=== PATIENT | female | born 1965 | race Caucasian/White ===

== ENCOUNTER 2016-12-14 17:05 | Emergency (ER) | payer BC ==
[~2016-12-14] VITALS: Ht 160 cm; Wt 60.0 kg
[2016-12-14 17:09] VITALS: BP 174/89; PULSE 78; RESP 18; TEMP 98.2; O2SAT 98
--- NOTE | 2016-12-14 18:32 | PD ---
HPI Chief Complaint: Numbness/Tingling Time Seen by Provider: 18:32 Travel History International Travel<30 days: No Contact w/Intl Traveler<30days: No Traveled to known affect area: No History of Present Illness HPI 51-year-old female presents the emergency department after seeing her physician today with history of intermittent bilateral lower extremity paresthesias/numbness, and episode of left arm numbness yesterday. Patient states she's had these symptoms off and on for the past 6 months. Patient states several months ago they were present but seem to resolve on their own with increased exercise. Patient states at that time she did not seek medical attention. Patient states she had her regular yearly physical today and has noted these symptoms worsen in the last week. Patient denies weakness, headache , dizziness, nausea, vomiting, or other focal neurological deficit. Patient states the symptoms do not seem to relate to any specific activity, or time of day. Patient denies increased recent anxiety or stressors. Denies any increased surgery. Patient states now that she's here in the emergency department she has no symptoms currently. Patient has no history of diabetes, or thyroid disease, And takes no medications. She has no known drug allergies. [facility] Past Medical History ?: Not LMP: december 2015 Past Surgical History Surgical History: No Previous Surgery Family History Family Myocardial Infarction: Yes (brother had mi ) Social History Alcohol Use: Yes (occ wine ) Tobacco Use: Yes (1/2 pack a day ) Substance Use: No Allergies-Medications (Allergen,Severity, Reaction): Coded Allergies: No Known Allergies (Unverified , 12/14/16) Review of Systems Except as stated in HPI: all other systems reviewed are Neg General / Constitutional: No: Fever Eyes: No: Visual changes HENT: No: Headaches Cardiovascular: No: Chest Pain or Discomfort Respiratory: No: Shortness of Breath Gastrointestinal: No: Abdominal Pain Genitourinary: No: Dysuria Musculoskeletal: No: Pain Skin: No Rash Neurologic: No: Weakness Psychiatric: No: Depression Endocrine: No: Polydipsia Hematologic/Lymphatic: No: Easy Bruising Physical Exam Narrative GENERAL: Patient appears in no acute distress. SKIN: Warm and dry. Normal color. Normal turgor. No rash. HEAD: Atraumatic. Normocephalic. EYES: Pupils equal and round. No scleral icterus. No injection or drainage. Ocular motions are equal bilaterally with no nystagmus. ENT: No nasal bleeding or discharge. Mucous membranes pink and moist. Pharynx is normal. Airway is patent. Tongue is midline. TMs are clear bilaterally. NECK: Trachea midline. No JVD. Supple nontender. CARDIOVASCULAR: Regular rate and rhythm. No murmurs gallops or rubs. RESPIRATORY: No accessory muscle use. Clear to auscultation. Breath sounds equal bilaterally. GASTROINTESTINAL: Abdomen soft, non-tender, nondistended. Hepatic and splenic margins not palpable. MUSCULOSKELETAL: Extremities without clubbing, cyanosis, or edema. No obvious deformities. Patient has full range of motion strength and sensation in all extremities at this time. She has normal pincher strength bilaterally. Patient has normal finger to nose, and [id number] testing. Romberg is down bilaterally. NEUROLOGICAL: Awake and alert. No obvious cranial nerve deficits. Motor grossly within normal limits. Five out of 5 muscle strength in the arms and legs. Normal speech. PSYCHIATRIC: Appropriate mood and affect; insight and judgment normal. Data Data Last Documented VS Vital Signs Date Time Temp Pulse Resp B/P Pulse Ox O2 Delivery O2 Flow Rate FiO2 12/14/16 20:05 18 98 Room Air 12/14/16 20:03 64 120/87 12/14/16 17:[address] Brain W/O Iv Contrast(Rout) (12/14/16 ) Electrocardiogram (12/14/16 ) Complete Blood Count With Diff (12/14/16 18:42) Comprehensive Metabolic Panel (12/14/16 18:42) Magnesium (Mg) (12/14/16 18:42) Act Partial Throm Time (Ptt) (12/14/16 18:42) Prothrombin Time / Inr (Pt) (12/14/16 18:42) Urinalysis - C+S If Indicated (12/14/16 18:42) Chest, Single Ap (12/14/16 18:42) Ecg Monitoring (12/14/16 18:42) Iv Access Insert/Monitor (12/14/16 18:42) Oximetry (12/14/16 18:42) Sodium Chloride 0.9% Flush (Ns Flush) (12/14/16 18:45) Thyroid Stimulating Hormone (12/14/16 18:42) Labs Laboratory Tests Test 12/14/16 12/14/16 18:50 19:30 White Blood Count 8.5 TH/MM3 Red Blood Count 4.86 MIL/MM3 Hemoglobin 14.9 GM/DL Hematocrit 43.1 % Mean Corpuscular Volume 88.8 FL Mean Corpuscular Hemoglobin 30.6 PG Mean Corpuscular Hemoglobin 34.4 % Concent Red Cell Distribution Width 13.8 % Platelet Count 305 TH/MM3 Mean Platelet Volume 6.7 FL Neutrophils (%) (Auto) 52.1 % Lymphocytes (%) (Auto) 38.3 % Monocytes (%) (Auto) 7.2 % Eosinophils (%) (Auto) 1.6 % Basophils (%) (Auto) 0.8 % Neutrophils # (Auto) 4.5 TH/MM3 Lymphocytes # (Auto) 3.3 TH/MM3 Monocytes # (Auto) 0.6 TH/MM3 Eosinophils # (Auto) 0.1 TH/MM3 Basophils # (Auto) 0.1 TH/MM3 CBC Comment DIFF FINAL Differential Comment Prothrombin Time 10.6 SEC Prothromb Time International 1.0 RATIO Ratio Activated Partial 27.9 SEC Thromboplast Time Sodium Level 141 MEQ/L Potassium Level 4.0 MEQ/L Chloride Level 105 MEQ/L Carbon Dioxide Level 24.9 MEQ/L Anion Gap 11 MEQ/L Blood Urea Nitrogen 11 MG/DL Creatinine 0.98 MG/DL Estimat Glomerular Filtration 60 ML/MIN Rate Random Glucose 90 MG/DL Calcium Level 9.6 MG/DL Magnesium Level 2.2 MG/DL Total Bilirubin 0.3 MG/DL Aspartate Amino Transf 28 U/L (AST/SGOT) Alanine Aminotransferase 31 U/L (ALT/SGPT) Alkaline Phosphatase 86 U/L Total Protein 7.5 GM/DL Albumin 4.3 GM/DL Thyroid Stimulating Hormone 1.830 uIU/ML 3rd Gen Urine Color LIGHT-YELLOW Urine Turbidity HAZY Urine pH 5.5 Urine Specific [place] 1.008 Urine Protein NEG mg/dL Urine Glucose (UA) NEG mg/dL Urine Ketones 10 mg/dL Urine Occult Blood MOD Urine Nitrite NEG Urine Bilirubin NEG Urine Urobilinogen LESS THAN 2.0 MG/DL Urine Leukocyte Esterase SMALL Urine RBC 6 /hpf Urine WBC 1 /hpf Urine Squamous Epithelial 6 /hpf Cells Microscopic Urinalysis Comment CULT NOT INDICATED MDM Medical Decision Making Medical Screen Exam Complete: Yes Emergency Medical Condition: Yes Differential Diagnosis Paresthesias. Electrolyte imbalance. Thyroid disease. Diabetes. Intracranial process. Possible MS. Narrative Course Patient's medically stable at time of exam. Labs ordered including CBC, CMP, magnesium, TSH, urinalysis. Chest x-ray is ordered as well as CT scan of the head. EKG is ordered as well. EKG shows normal sinus rhythm without acute changes. This is reviewed with Dr. Son. CBC is unremarkable. Blood pressures rechecked at 1920 hrs. and found to be 132/80 to manually taken by myself. Chest x-ray is unremarkable for acute findings per radiologist. CT scan is unremarkable for acute findings per radiologist. Coagulation studies are normal. Electrolytes are normal. Creatinine 0.98. CMP is unremarkable. TSH is normal at 1.08. Urinalysis is normal as well. Patient was discussed with Dr. Son who felt the patient was stable for discharge home. Patient is recommended follow with her primary care physician or neurologist as discussed. Patient can return the right department anytime for worsening symptoms as needed. Diagnosis Primary Impression: Paresthesia of both feet Additional Impression: Intermittent paresthesia of right hand and foot Referrals: Rivera Baugh MD call for appointment Primary Care Physician call for appointment Patient Instructions: General Instructions, Paresthesia (ED) Additional Instructions: The workup today here at the emergency department was negative for any acute findings. Recommend close follow with her primary care physician and possible neurology consult for ongoing paresthesia. Med/Other Pt SpecificInfo: No Meds Exist/No RX given Disposition: DISCHARGE HOME Condition: Stable Chas Cannon Dec 14, 2016 18:32
[2016-12-14] MEDS ORDERED: SODIUM CHLORIDE 0.9% FLUSH 10 ML FLUSH IVF PRN (18:45)
--- NOTE | 2016-12-14 18:58 | RADRPT ---
EXAM DATE/TIME: 12/14/2016 18:47 [facility] COMPARISON: No previous studies available for comparison. INDICATIONS : Bilateral tingling in feet and right arm numbness. RADIATION DOSE: 29.96 CTDIvol (mGy) MEDICAL HISTORY : None SURGICAL HISTORY : Umbilical hernia repair. None. ENCOUNTER: Initial ACUITY: 1 day PAIN SCALE: 0/10 LOCATION: cranial TECHNIQUE: Multiple contiguous axial images were obtained of the head. Using automated exposure control and adj ustment of the mA and/or kV according to patient size, radiation dose was kept as low as reasonably a chievable to obtain optimal diagnostic quality images. FINDINGS: CEREBRUM: The ventricles are normal for age. No evidence of midline shift, mass lesion, hemorrhage or acute in farction. No extra-axial fluid collections are seen. POSTERIOR FOSSA: The cerebellum and brainstem are intact. The 4th ventricle is midline. The cerebellopontine angle i s unremarkable. EXTRACRANIAL: The visualized portion of the orbits is intact. SKULL: The calvaria is intact. No evidence of skull fracture. CONCLUSION: No acute intracranial disease. Anthony Oliva MD on December 14, 2016 at 18:56 Board Certified Radiologist. This report was verified electronically.
--- NOTE | 2016-12-14 19:08 | RADRPT ---
EXAM DATE/TIME: 12/14/2016 18:55 [facility] COMPARISON: No previous studies available for comparison. INDICATIONS : Tingling in extremities and dizziness. MEDICAL HISTORY : None. SURGICAL HISTORY : None. ENCOUNTER: Initial ACUITY: 2 days PAIN SCORE: 0/10 LOCATION: Bilateral chest FINDINGS: A single view of the chest demonstrates the lungs to be symmetrically aerated without evidence of mas s, infiltrate or effusion. The cardiomediastinal contours are unremarkable. Osseous structures are intact. CONCLUSION: No acute disease. Anthony Oliva MD on December 14, 2016 at 19:06 Board Certified Radiologist. This report was verified electronically.
[2016-12-14 19:13] LABS: AUTOMATED NEUTROPHIL # 4.5 TH/MM3 (1.8-7.7); BASOPHIL # 0.1 TH/MM3 (0-0.2); BASOPHIL % 0.8 % (0.0-2.0); EOSINOPHIL # 0.1 TH/MM3 (0-0.4); EOSINOPHIL % 1.6 % (0.0-4.0); HEMATOCRIT 43.1 % (35.0-46.0); HEMO FLAGS DIFF FINAL; LYMPH % 38.3 % (9.0-44.0); LYMPHOCYTE # 3.3 TH/MM3 (1.0-4.8); MEAN CELL VOLUME 88.8 FL (80.0-100.0); MEAN CORPUSCULAR HEMOGLOBIN 30.6 PG (27.0-34.0); MEAN CORPUSCULAR HGB CONC 34.4 % (32.0-36.0); MONO % 7.2 % (0.0-8.0); NEUT % 52.1 % (16.0-70.0); PLATELET COUNT 305 TH/MM3 (150-450); RED BLOOD COUNT 4.86 MIL/MM3 (4.00-5.30); RED CELL DISTRIBUTION WIDTH 13.8 % (11.6-17.2); WHITE BLOOD COUNT 8.5 TH/MM3 (4.0-11.0)
[2016-12-14 19:21] LABS: APTT (PATIENT) 27.9 SEC (24.3-30.1); PROTHROMBIN TIME - PATIENT 10.6 SEC (9.8-11.6)
[2016-12-14 19:29] LABS: ANION GAP 11 MEQ/L (5-15); AST (GOT) 28 U/L (15-37); BICARBONATE 24.9 MEQ/L (21.0-32.0); BLOOD UREA NITROGEN 11 MG/DL (7-18); CHLORIDE 105 MEQ/L (98-107); GLOMERULAR FILTRATION RATE 60 ML/MIN (>89); MAGNESIUM 2.2 MG/DL (1.5-2.5); SODIUM (NA) 141 MEQ/L (136-145)
[2016-12-14 19:39] LABS: ALKALINE PHOSPHATASE 86 U/L (45-117); ALT (GPT) 31 U/L (10-53); TOTAL BILIRUBIN ADULT 0.3 MG/DL (0.2-1.0)
[2016-12-14 20:03] VITALS: BP 120/87; PULSE 64; RESP 18; O2SAT 98
[2016-12-14 20:05] VITALS: RESP 18; O2SAT 98
[2016-12-14 20:10] LABS: BLOOD, URINE MOD (NEG); COMMENT (UR) CULT NOT INDICATED; CULTURE IF INDICATED CULT NOT INDICATED; GLUCOSE,URINE NEG (NEG); KETONE, URINE 10 mg/dL (NEG); NITRITE,URINE NEG (NEG); PH, URINE 5.5 (5.0-8.5); SQUAMOUS EPITHELIAL CELL URINE 6 /hpf (0-5); URINE COLOR LIGHT-YELLOW (YELLW/STRAW)
--- NOTE | 2016-12-15 13:44 | EKG ---
Date Performed: 12/14/2016 Time Performed: 18:29:01 PTAGE: 51 years EKG: SINUS BRADYCARDIA WITH SINUS ARRHYTHMIA POSSIBLE LEFT ATRIAL ENLARGEMENT POSSIBLE RIGHT [place] TRICULAR CONDUCTION DELAY Nonspecific ST-T wave changes BORDERLINE ECG PREVIOUS TRACING : 12/14/2016 18.28 DOCTOR: Dorian Mondragon Interpretating Date/Time 12/18/2016 08:10:42
== END 2016-12-14 20:37 | disposition home or self-care (01) ==
LOC: NEPC 17:05
DX: R20.2 Paresthesia of skin (principal); R00.1 Bradycardia, unspecified
CPT/HCPCS: 70450; 71010; 80053; 81001; 83735; 84443; 85025; 85610; 85730; 93005